=== PATIENT | female | born 1985 | race American Indian/Alaskan Native ===

== ENCOUNTER 2018-05-04 09:16 | Emergency (ER) | payer BC ==
--- NOTE | 2018-05-04 09:56 | ED PDOC ---
Arrival/HPI - General Historian: Patient - History of Present Illness Time/Duration: 4-6 hours Symptom Onset: Sudden Symptom Course: Improving Quality: Burning <Blayne Riggs - Last Filed: 05/04/18 14:10> <Tal Suarez - Last Filed: 05/04/18 18:01> - General Chief Complaint: Abdominal Pain Time Seen by Provider: 05/04/18 09:28 - History of Present Illness Narrative History of Present Illness (Text): 05/04/18 09:55 Patient is a 32 year old female with a past medical history of polycystic ovarian syndrome presenting with lower abdominal pain since this morning. Patient woke up at approximately 0530 and started to experience a burning sensation in her lower abdomen. She started to experience nausea, vomiting and diarrhea. She vomited twice, described as greenish brown liquid with some undigested food from her dinner last night. She is no longer nauseous and has not vomited in 3 hours. She experienced 6 episodes of diarrhea. The first 5 episodes were loosely formed stools with the 6th episode described as watery only. She is no longer experiences any nausea or pain at this time but was instructed to be evaluated by her employer. Denies fevers, chills, chest pain, shortness of breath, headaches, sore throat, cough, urinary symptoms, numbness or tingling. PMH: PCOS PSH: denies Social: denies tobacco, social alcohol, denies illicit drug use. (Blayne Riggs) Past Medical History - Provider Review Nursing Documentation Reviewed: Yes - Travel History Have you recently traveled outside [place] w/in the past 3 mons?: No - Past History Past History: No Previous <Blayne Riggs - Last Filed: 05/04/18 14:10> Family/Social History - Physician Review Nursing Documentation Reviewed: Yes Family/Social History: Unknown Family HX Smoking Status: Never Smoked Hx Alcohol Use: Yes Frequency of alcohol use: Socially Hx Substance Use: No <Blayne Riggs - Last Filed: 05/04/18 14:10> Allergies/Home Meds <Blayne iRggs - Last Filed: 05/04/18 14:10> <Tal Suarez - Last Filed: 05/04/18 18:01> Allergies/Adverse Reactions: Allergies mullen Allergy (Verified 09/18/18 10:04) REDNESS Review of Systems - Physician Review All systems were reviewed & negative as marked: Yes - Review of Systems Constitutional: Normal. absent: Fatigue, Fevers Eyes: Normal ENT: Normal. absent: Sore Throat, Rhinorrhea Respiratory: Normal. absent: SOB, Cough Cardiovascular: Normal. absent: Chest Pain, Calf Pain Gastrointestinal: Abdominal Pain (burning), Stool Changes, Diarrhea (x6 episodes ), Nausea (resolved), Vomiting (x2 episodes, resolved). absent: Constipation, Appetite Changes, Hematochezia, Hematemesis Genitourinary Female: Vaginal Bleeding (spotting, starting menstration). absent : Dysuria, Frequency, Hematuria, Vaginal Discharge Musculoskeletal: Normal. absent: Back Pain Skin: Normal Neurological: Normal. absent: Headache, Dizziness Endocrine: Normal. absent: Diaphoresis Hemo/Lymphatic: Normal Psychiatric: Normal. absent: Anxiety, Depression <Blayne Riggs - Last Filed: 05/04/18 14:10> Physical Exam Vital Signs Reviewed: Yes Temperature: Afebrile Blood Pressure: Normal Pulse: Regular Respiratory Rate: Normal Appearance: Positive for: Well-Appearing, Non-Toxic, Comfortable, Other ( morbidly obese) Pain Distress: None Mental Status: Positive for: Alert and Oriented X 3 - Systems Exam Head: Present: Atraumatic, Normocephalic Extroacular Muscles: Present: EOMI Conjunctiva: Present: Normal Mouth: Present: Moist Mucous Membranes. No: Dry Pharnyx: Present: Normal. No: ERYTHEMA, EXUDATE, TONSILS ENLARGED, Strider Nose (External): Present: Atraumatic Nose (Internal): Present: Normal Inspection, No Active Bleeding, Moist Neck: Present: Normal Range of Motion. No: Meningeal Signs, JVD, Lymphadenopathy Respiratory/Chest: Present: Clear to Auscultation, Good Air Exchange. No: Respiratory Distress, Accessory Muscle Use Cardiovascular: Present: Regular Rate and Rhythm, Normal S1, S2. No: Murmurs Abdomen: Present: Tenderness (RLQ), Normal Bowel Sounds, McBurney's Point Tender. No: Distention, Peritoneal Signs, Rebound, Guarding, Rovsing's Sign Present, Scars Upper Extremity: Present: Normal Inspection, NORMAL PULSES. No: Cyanosis, Edema Lower Extremity: Present: Normal Inspection, NORMAL PULSES. No: Edema, CALF TENDERNESS Neurological: Present: GCS=15, Speech Normal, Motor Func Grossly Intact Skin: Present: Warm, Dry, Normal Color. No: Rashes Lymphatic: No: Cervical Adenopathy Psychiatric: Present: Alert, Oriented x 3, Normal Insight, Normal Concentration <Blayne Riggs - Last Filed: 05/04/18 14:10> Vital Signs Temp Pulse Resp BP Pulse Ox 05/04/18 12:45 98.0 F 73 18 110/76 98 05/04/18 10:31 98.0 F 72 18 104/72 98 Medical Decision Making Re-evaluation Time: 12:09 Reassessment Condition: Re-examined, Improved - Lab Interpretations I have reviewed the lab results: Yes Interpretation: All labs normal - RAD Interpretation Insurance Billing Clerk: Radiologist <Blayne Riggs - Last Filed: 05/04/18 14:10> <Tal Suarez - Last Filed: 05/04/18 18:01> ED Course and Treatment: 05/04/18 10:05 Patient is a 32 year old female with pmh of PCOS presenting with lower abdominal pain, vomiting and diarrhea. Abd exam remarkable for RLQ tenderness only. Labs Abd/Pel CT w/IV contrast only. No medications indicated at this time as patient denies any pain or nausea. 05/04/18 11:35 All labs normal awaiting CT results 05/04/18 12:09 Patient is feeling well and currently has no complaints. Discussed normal labs and CT findings. Will discharge patient home w/o prescriptions. (Blayne Riggs) 05/04/18 10:10 32 year old female presents to the Emergency department complaining of lower abdominal pain, vomiting and diarrhea. In agreement with resident note, which includes further HPI details. Patient was seen and evaluated with resident, came up with plan and treatment together. (Tal Suarez) - Lab Interpretations Lab Results: 05/04/18 11:00 05/04/18 11:00 Lab Results 05/04/18 11:00: Sodium 139, Potassium 4.2, Chloride 104, Carbon Dioxide 28, Anion Gap 11, BUN 11, Creatinine 0.8, Est GFR ( Amer) > 60, Est GFR (Non- Af Amer) > 60, Random Glucose 93, Calcium 9.1, Magnesium 2.2, Total Bilirubin 0.3, AST 33, ALT 36, Alkaline Phosphatase 77, Total Protein 7.9, Albumin 4.0, Globulin 3.8, Albumin/Globulin Ratio 1.1 05/04/18 11:00: WBC 7.8, RBC 5.19, Hgb 13.0, Hct 41.0, MCV 79.0 L, MCH 25.0, MCHC 31.7, RDW 14.3, Plt Count 323, MPV 9.2, Gran % 52.5, Lymph % (Auto) 33.1, Hayes % (Auto) 9.8 H, Eos % (Auto) 4.2, Baso % (Auto) 0.4, Gran # 4.10, Lymph # ( Auto) 2.6, Hayes # (Auto) 0.8 H, Eos # (Auto) 0.3, Baso # (Auto) 0.03 - RAD Interpretation Narrative RAD Interpretations (Text): 05/04/18 12:10 Abd/Pelvis CT w/ IV contrast: IMPRESSION: No acute intra-abdominal findings (Blayne Riggs) Radiology Orders: 05/04/18 10:04 ABD & PELVIS IV CONTRAST ONLY [CT] Stat <Blayne Riggs - Last Filed: 05/04/18 14:10> - PA / TEST PREPARATION TUTOR / Resident Statement / has reviewed & agrees with the documentation as recorded. / has examined the patient and agrees with the treatment plan. - Scribe Statement The provider has reviewed the documentation as recorded by the Scribe <Tal Suarez - Last Filed: 05/04/18 18:01> - Scribe Statement Marcos Mullins. All medical record entries made by the Scribe were at my direction and personally dictated by me. I have reviewed the chart and agree that the record accurately reflects my personal performance of the history, physical exam, medical decision making, and the department course for this patient. I have also personally directed, reviewed, and agree with the discharge instructions and disposition. (Tal Suarez) Disposition/Present on Arrival - Present on Arrival Any Indicators Present on Arrival: No History of DVT/PE: No History of Uncontrolled Diabetes: No Urinary Catheter: No History of Decub. Ulcer: No - Disposition Have Diagnosis and Disposition been Completed?: Yes Disposition Time: 12:11 Patient Plan: Discharge <Blayne Riggs - Last Filed: 05/04/18 14:10> <Tal Suarez - Last Filed: 05/04/18 18:01> - Disposition Diagnosis: Gastroenteritis Disposition: HOME/ ROUTINE Condition: IMPROVED Discharge Instructions (ExitCare): Gastroenteritis (ED) Additional Instructions: Patient is to be discharged home w/o prescriptions. Patient is to follow up with primary care physician within 2-3 days. If patient experiences any new or worsening symptoms, patient is to go to nearest emergency department. Forms: [employer] (Togolese), WORK NOTE
[2018-05-04 10:06] VITALS: BMI 64.6
[2018-05-04] MEDS ORDERED: Iohexol 350 MG/100 ML VIAL ONE (10:13)
[2018-05-04 10:32] VITALS: RESP 18; TEMP 98; O2SAT 98
[2018-05-04 11:11] LABS: BASO # 0.03 K/mm3 (0.0-2.0); BASO % 0.4 % (0.0-3.0); EOS # 0.3 (0.0-0.7); EOS % 4.2 % (1.5-5.0); GRAN # 4.1 (1.4-6.5); GRAN % 52.5 % (50.0-68.0); LYMPH # 2.6 (1.2-3.4); LYMPH % 33.1 % (22.0-35.0); MEAN CORPUSCULAR HGB CONC 31.7 g/dl (31.0-37.0); MEAN PLATELET VOLUME 9.2 fl (7.0-11.0); MONO # 0.8 (0.1-0.6); MONO % 9.8 % (1.0-6.0); RBC 5.19 10^6/uL (3.5-6.1); RED CELL DISTRIBUTION WIDTH 14.3 % (11.5-14.5); WHITE BLOOD COUNT 7.8 10^3/ul (4.5-11.0)
[2018-05-04 11:20] LABS: ALB/GLOB RATIO 1.1 (1.1-1.8); ALT/SGPT 36 U/L (7-56); AST/SGOT 33 U/L (14-36); BLOOD UREA NITROGEN 11 mg/dL (7-21); CALCIUM 9.1 mg/dL (8.4-10.5); GFR NON-AFRICAN AMERICAN > 60
--- NOTE | 2018-05-04 12:03 | CT ---
Date of service: 05/04/2018 PROCEDURE: CT Abdomen and Pelvis with contrast HISTORY: RLQ pain, r/o appy COMPARISON: None. TECHNIQUE: Contrast dose: 100 cc of Omni 350 Radiation dose: Total exam DLP = 1033 mGy-cm. This CT exam was performed using one or more of the following dose reduction techniques: Automated exposure control, adjustment of the mA and/or kV according to patient size, and/or use of iterative reconstruction technique. FINDINGS: LOWER THORAX: Unremarkable. LIVER: Unremarkable. No gross lesion or ductal dilatation. GALLBLADDER AND BILE DUCTS: Unremarkable. PANCREAS: Unremarkable. No gross lesion or ductal dilatation. SPLEEN: Unremarkable. ADRENALS: Unremarkable. No mass. KIDNEYS AND URETERS: Unremarkable. No hydronephrosis. No solid mass. VASCULATURE: Unremarkable. No aortic aneurysm. BOWEL: There is fatty infiltration of the wall of the colon. This finding is usually seen in the setting of chronic inflammatory bowel disease. There are no acute inflammatory changes. APPENDIX: Normal appendix. PERITONEUM: Unremarkable. No free fluid. No free air. LYMPH NODES: Unremarkable. No enlarged lymph nodes. BLADDER: Unremarkable. REPRODUCTIVE: Unremarkable. BONES: No acute fracture. OTHER FINDINGS: None. IMPRESSION: No acute intra-abdominal findings
[2018-05-04 12:46] VITALS: BP 110/76; PULSE 73
== END 2018-05-04 12:45 | disposition home or self-care (01) ==
LOC: ED 09:16
DX: K52.9 Noninfective gastroenteritis and colitis, unspecified (principal)
CPT/HCPCS: 74177; 80053; 83735; 85025; 99283; Q9967